=== PATIENT | male | born 1960 | race Two or more races ===

== ENCOUNTER 2021-10-24 09:44 | Emergency (ER) | payer MEDICAID ==
[~2021-10-24] VITALS: Ht 162.6 cm; Wt 69.9 kg
[2021-10-24 09:56] VITALS: BP 176/94
--- NOTE | 2021-10-24 10:00 | NUR ---
BIBS C/O RIGHT EAR PAIN "BUG WENT IN MY EAR WHILE WORKING THIS MORNING" "I FEEL IT MOVING". RATES PAIN 7/10. IN ROOM AIR AND DENIES SOB. RESPIRATION REGULAR AND UNLABORED. WILL CONTINUE TO MONITOR THE PATIENT.
--- NOTE | 2021-10-24 12:00 | NUR ---
Patient discharged to home in stable condition. Written and verbal after care instructions given. Patient verbalizes understanding of instruction.
== END 2021-10-24 12:16 | disposition home or self-care (01) ==
LOC: ER 09:47
DX: T16.1XXA Foreign body in right ear, initial encounter (principal); X58.XXXA Exposure to other specified factors, initial encounter; Y93.89 Activity, other specified; Y92.89 Other specified places as the place of occurrence of the external cause; Y99.8 Other external cause status